=== PATIENT | female | born 1950 | race Caucasian/White ===

== ENCOUNTER → 2024-07-25 10:38 | Outpatient (REF) | payer MEDICARE, SELFPAY | LOC: MRI 10:38 | PROVIDERS: ATTENDING PHYSICIAN Nurse Practitioner; FAMILY PHYSICIAN Internal Medicine | DX: D35.2 Benign neoplasm of pituitary gland (principal) | CPT/HCPCS: 70553; A9575 ==

== ENCOUNTER 2025-09-10 16:34 | Inpatient (IN) | payer MEDICARE, SELFPAY ==
[2025-09-10] VITALS (10 sets, daily range): BP systolic 86–112; BP diastolic 40–61; BMI 45.6; BMI 43.0
[2025-09-10 11:13] LABS: Hematocrit 43.2 % (37.0-47.0); Hemoglobin 14.1 g/dL (12.0-16.0); Mean Corp Hgb Conc. 32.6 g/dL (33.0-37.0); Mean Corpuscular Volume 94.9 fL (81.0-99.0); Nucleated Red Blood Cells % 0 %; Platelet Count 132 10^3/uL (130-400); Red Cell Dist. Width 13.6 % (11.5-14.5)
[2025-09-10 11:28] LABS: ALT (SGPT) 27 U/L (0-35); AST (SGOT) 34 U/L (14-36); Albumin 3.5 g/dl (3.5-5.0); Alkaline Phosphatase 66 U/L (38-126); Blood Urea Nitrogen 21 mg/dl (7-17); Calcium 7.9 mg/dl (8.4-10.2); Carbon Dioxide 32 mmol/L (22-30); Chloride 97 mmol/L (98-107); Glucose 105 mg/dl (70-99); Potassium 3.7 mmol/L (3.5-5.1); Sodium 132 mmol/L (135-145); Total Protein 6.5 g/dl (6.3-8.2); eGFR > 60.00
--- NOTE | 2025-09-10 13:00 | ED.GENMED ---
History of Present Illness
General
Chief Complaint: Fall
Source: patient
Exam Limitations: none
Time Seen by Provider: 09/10/25 12:45
Nursing documentation reviewed up to this point in time: agreed with
History of Present Illness
History of Present Illness:
75-year-old female with a past medical history as noted presents to the ER from [facility]; she presents for evaluation of generalized weakness and minor fall. Patient reports that she has been feeling unwell for the past
3 days today is the fourth day of illness. She says that she has had profuse nausea and vomiting, diarrhea and poor p.o. intake because of the symptoms. She says 'I have not eaten in 4 days.' She says that she had some associated abdominal
cramping. She says she has been feeling weak and fatigued. Denies any cough, URI symptoms, shortness of breath, chest pain. Denies headache. She does not believe she had a fever. She says the GI illness is going around the living facility. She
says that this morning her nausea/vomiting and diarrhea seem to have greatly improved however she was still feeling very weak. She got up to go to the bathroom and when she was getting up off the toilet she says that her legs felt weak and tingly
underneath her and she fell onto her bottom. She says she did not hit her head and did not sustain any major injuries. She denies any headache, neck pain, back pain, extremity pain since the fall. She was too weak to stand up on her own and stiff
and called EMS and ultimately she was brought to the ER for evaluation. She is not on any blood thinners. She says that although she feels generally weak she denies any focal weakness in her legs or numbness in her legs at present.
Past History
Past History
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
ED Past Surgical History: Other (Unknown)
Social History
Tobacco: Non-smoker (Unknown)
Alcohol: None (Unknown)
Drug: None and Other (Unknown)
Living: assisted living
Employment: Not employed
Family History
Family History: Other (reviewed and noncontributory)
Review of Systems
Review of Systems
All Other Systems: ROS reviewed and negative except as documented in HPI and ROS
Constitutional: Reports fatigue; Denies fever or chills
EENT: Denies sore throat or runny nose
Respiratory: Denies cough or trouble breathing
Cardiac: Denies chest pain or palpitations
ABD/GI: Reports abdominal pain, nausea, vomiting, diarrhea and anorexia
: Denies dysuria or flank pain
Musculoskeletal: Denies neck pain or back pain
Neurological: Reports weakness (Generalized) and numbness (Transient numbness/paresthesias in the legs after prolonged sitting on the toilet; resolved now); Denies dizzy or headache
Phy Exam
Physical Exam
Physical Exam:
General: Awake, alert, oriented x3; no acute distress
Head: Normocephalic, atraumatic
Eyes: Conjunctiva normal, sclera anicteric
Throat: Airway intact, somewhat dry mucous membranes
Neck: Trachea midline, supple without meningismus
Lungs: Clear to auscultation bilaterally, no wheezing, rales, rhonchi
Heart: Regular rate and rhythm, no murmurs, gallops, or rubs appreciated
Abd: Soft, non distended, nontender to the palpation
Neuro: Cranial nerves intact, speech fluid, motor and sensory intact and symmetric in all extremities specifically 5/5 motor proximally distally in the legs bilaterally and sensory exam intact in the legs across all dermatomes
Skin: No signs of acute trauma
Extremities: Trace edema in the legs bilaterally, extremities are warm and well-perfused
Scores
Heart Failure Risk
Heart Failure Risk Score: Not Applicable
Heart Score for Chest Pain Patients
STEMI patient?: Not applicable
Withdrawal Assessment of Alcohol
Withdrawal Assessment Completed?: Not applicable
Course
Orders/Labs/Results
Orders:
Orders
09/10/25 10:56
Complete Blood Count/With Diff Urgent
Comprehensive Metabolic Panel Urgent
09/10/25 12:59
0.9% Sodium Chloride 1000 ml [Nss] 1,000 ml IV BOLUS
CR Chest - 2 Views Urgent
Comment:
Reason For Exam: hypoxia, weakness, recent vomiting
09/10/25 13:07
Electrocardiogram (*1) Urgent
Reason for Study: Fatigue / Weakness
EKG- Treatment ONCE
09/10/25 13:33
COVID-19 Antigen Urgent
Source: Nasal Swab
Influenza A+B Rapid Molecular Urgent
BATOOL Source: Nasal Swab
Specimen Description:
Abnormal Lab Results
09/10/25
10:56
MCHC 32.6 L g/dL
(33.0-37.0)
Absolute Lymphs (auto) 0.8 L 10^3/uL
(1.2-3.4)
Absolute Monos (auto) 0.7 H 10^3/uL
(0.1-0.6)
Lymphocytes % 13.4 L %
(20.5-51.1)
Monocytes % 12.0 H %
(1.7-9.3)
Sodium 132 L mmol/L
(135-145)
Chloride 97 L mmol/L
(98-107)
Carbon Dioxide 32 H mmol/L
(22-30)
BUN 21 H mg/dl
(7-17)
Glucose 105 H mg/dl
(70-99)
Calcium 7.9 L mg/dl
(8.4-10.2)
09/10/25 10:56
09/10/25 10:56
Vital Signs
Blood pressure: 98/52
Initial and Last Documented VS:
Initial Vital Signs
Temp Pulse Resp BP Pulse Ox
36.7 C 67 16 102/53 93
09/10/25 10:43 09/10/25 10:43 09/10/25 10:43 09/10/25 10:43 09/10/25 10:43
Last Documented Vital Signs
Temp Pulse Resp BP Pulse Ox
37.2 C 63 16 109/54 99
09/10/25 14:14 09/10/25 14:30 09/10/25 14:30 09/10/25 14:10 09/10/25 14:30
MDM/Problems Addressed
Differential Diagnosis Includes:
Generalized weakness in the setting of recent GI illness:
Nausea/vomiting/diarrhea: Gastroenteritis, colitis, bowel obstruction less likely with symptoms improved/resolved today
Weakness: Dehydration, dysrhythmia, electrolyte abnormality; although she reported weakness in the legs earlier nothing to suggest spinal emergency or CVA by history or exam
MDM/Problems Addressed:
75-year-old female presents for evaluation of generalized weakness and minor fall today in the setting of recent GI illness (nausea/vomiting/diarrhea/crampy abdominal pain). GI symptoms improved today but still very weak and ultimately had minor
fall from toilet with no serious injuries but was unable to stand up. Vitals and exam are as above. Of note she was low normal pulse ox 92% in triage but not truly hypoxic. She denies feeling short of breath or having a cough. Nevertheless can
check chest x-ray to rule out aspiration/pneumonia in the setting of recent vomiting. Check labs including a CBC and a CMP. Check an EKG. Provide some IV fluids. Overall suspect dehydration in the setting of recent GI symptoms which were likely
viral.
Labs reviewed: CBC unremarkable, CMP shows mild hyponatremia and mildly elevated BUN suspect from GI losses/dehydration. Chest x-ray showed no pneumonia or other acute abnormalities. Patient weaned off oxygen, pulse ox acceptable. Blood pressure
still soft 98/54 my most recent check, we will continue fluids, admit for continued monitoring. Discussed with hospitalist.
Chronic conditions affecting care:
Obesity
*Radiology
Radiology exam reviewed: preliminary read by ED provider
*Pulse Oximetry
SaO2: 93
Oxygen Mode of Delivery: Room air
Patient hypoxic: no (92%)
*EKG
Interpreted by ED Provider?: Yes
Comparison EKG: no changes
Heart Rate: 65
Rate: normal
Rhythm: sinus
Beason: left axis deviation
Interval: normal interval
QRS Pattern: normal QRS
Ischemia: no ischemia
*Critical Care Note
Total Time (30-74mins, 75-104mins- exclusive of procedures): Not Applicable
Data Reviewed
Review of Other/Old Records Reveals: Labs and Records
Source: patient, records and ambulance crew
Patient Management
Discussion with other providers: Hospitalist (Discussed with hospitalist)
Escalation/DeEscalation of care consider admission/obs:
Admission indicated
ED Attending Note
-
Portions of this chart may have been created with voice recognition software.� Occasional wrong word or��sound alike� substitutions may have occurred due to the inherent limitations of voice recognition software.
Discharge Plan
Departure
Patient Disposition: Admit
Date of Disposition: 09/10/25
Time of Disposition: 15:10
Admit to doctor: Pj
Presentation/result/management discussed w/ accepting MD/DO: Hospitalist
Discharge Problem:
Dehydration, Weakness
Prescriptions:
No Action
atorvastatin 20 MG tablet
20 mg PO QPM
cranberry 500 MG capsule
500 mg PO DAILY
acetaminophen [Tylenol Extra Strength] 500 mg Tablet
1,000 mg PO Q4HPRN PRN (Reason: mild pain)
acetaminophen [Tylenol Extra Strength] 500 mg Tablet
1,000 mg PO BID
aspirin 81 mg Tablet,Chewable
81 mg PO DAILY
nystatin 100,000 unit/gram Powder
1 applic TOPICAL BIDPRN PRN (Reason: apply to folds and groin)
levothyroxine 88 mcg Tablet
88 mcg PO DAILY
furosemide 20 mg Tablet
10 mg PO MOWEFR
hydrocortisone 10 mg Tablet
10 mg PO DAILY
ketoconazole 2 % Cream
1 applic TOPICAL BID
Deep Sea Nasal 0.65 % Aerosol,[place]
1 spray INTRANASAL Q4HPRN PRN (Reason: dry nares)
Saccharomyces boulardii [Florastor] 250 mg Capsule
250 mg PO BID
solifenacin 10 mg Tablet
10 mg PO DAILY
Referrals:
MEÑO BORDEN MD [Family Provider, Internal Medicine]
Interventions
Interventions:
*General Assessment Last Done: 09/10/25 10:43
*Neglect/Abuse Screening Last Done: 09/10/25 10:43
*ED Influenza Vaccine History Last Done: 09/10/25 10:43
*Risk Screen - Suicide (C-SSRS) Last Done: 09/10/25 10:43
Discharge Date and Time
Print Language: CANADIAN
[2025-09-10 14:10] LABS: COVID-19 Antigen Negative (Negative)
[2025-09-10] MEDS: NSS 1000 IV ×3 (14:17→19:00)
--- NOTE | 2025-09-10 15:42 | HPS.HSE ---
Family Physician
-
Family Physician: MEÑO BORDEN MD
Chief Complaint
-
weakness and fall
History of Present Illness
Ms. 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
getting off of the toilet this morning.
Patient lives at the [facility] and states Flu has been going around. She noticed symptoms on Sunday which including significant fatigue and cough, decreased appetite. She tested positive for Flu. She has had vomiting and diarrhea, abdominal
discomfort. When she got up from the bathroom today she reports that her legs felt weak and she fell onto her bottom. She did not hit her head. One side did not feel weaker than the other.
No chest pain or shortness of breath. No fever. No LE swelling. No MCCORMICK. She was not prescribed Tamiflu.
During my evaluation patient's blood pressure dropped to mid-80's, receiving IVF.
Medical History
Past Medical History
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
Past Surgical History: Reports Other (transphenoid resection pituitary adenoma, bilateral knee replacements, tonsillectomy )
Social History
Tobacco: Non-smoker
Alcohol: None
Family History
Family History: Not pertinent
Allergies / Home Medications
Allergies reflects when Allergies were last updated in sones.
Home Medications with original date entered in sones
Allergy/Medication List:
Allergies
Allergy/AdvReac Type Severity Reaction Status Date / Time
No Known Allergies Allergy Verified 09/10/25 10:47
Home Medications
atorvastatin 20 mg tablet 20 mg PO QPM High cholesterol 10/16/21
cranberry 500 mg capsule 500 mg PO DAILY Supplement 10/16/21
acetaminophen 500 mg tablet (Tylenol Extra Strength) 1,000 mg PO BID Anti-Inflammatory 02/26/23
acetaminophen 500 mg tablet (Tylenol Extra Strength) 1,000 mg PO Q4HPRN PRN mild pain 02/26/23
aspirin 81 mg chewable tablet 81 mg PO DAILY Blood Clot Prevention/Tx 02/26/23
nystatin 100,000 unit/gram topical powder 1 applic topical BIDPRN PRN apply to folds and groin 04/24/23
Saccharomyces boulardii 250 mg capsule (Florastor) 250 mg PO BID Supplement 09/10/25
furosemide 20 mg tablet 10 mg PO MOWEFR Fluid Retention/Swelling 09/10/25
hydrocortisone 10 mg tablet 10 mg PO DAILY Anti-Inflammatory 09/10/25
ketoconazole 2 % topical cream 1 applic topical BID tinea crusis 09/10/25
levothyroxine 88 mcg tablet 88 mcg PO DAILY Thyroid 09/10/25
sodium chloride 0.65 % nasal spray aerosol (Deep Sea Nasal) 1 spray intranasal Q4HPRN PRN dry nares 09/10/25
solifenacin 10 mg tablet 10 mg PO DAILY Urinary Issue 09/10/25
Review of Systems
-
History Source: Patient
A 12 point ROS was completed and negative except as noted: Yes
Physical Exam
Vital Signs
Vital Signs
Temp Pulse Resp BP Pulse Ox
99.0 F 63 16 98/52 99
09/10/25 14:14 09/10/25 14:30 09/10/25 14:30 09/10/25 15:11 09/10/25 14:30
Physical Exam
General: No Apparent Distress and Appears Chronically Ill
HEENT: PERRLA
Respiratory: No Wheezes
Cardiac: S1/S2 and Regular Rhythm
GI: Soft and Non Tender
Musculoskeletal: No Edema
Skin: Warm and Dry; No Rash
Neuro: AO x 3
Psych: Calm
Laboratory Results
-
09/10/25 10:56
09/10/25 10:56
Laboratory Results
Total Bilirubin 1.1 mg/dl (0.2-1.3) 09/10/25 10:56
AST 34 U/L (14-36) 09/10/25 10:56
ALT 27 U/L (0-35) 09/10/25 10:56
Alkaline Phosphatase 66 U/L (38-126) 09/10/25 10:56
Data Reviewed
-
Diagnostic Radiology: Report Reviewed by me
Lab Data: Labs Reviewed by me
Impression/Plan
-
Ms. Olga Cevallos is a 75 yo woman with hx HLD, overactive bladder, BPPV, pituitary adenoma s/p transphenoidal resection 2023, left facial droop from Avilse's palsy, recent diagnosis of flu presents with poor PO intake, weakness and fall when she was
getting off of the toilet this morning.
Triage VS: T 36.7, P 67, RR 16, BP 102/53, SpO2 93%
LABS: WBC 5.9, Hg 14.1, PLT 132, Na 132, K+ 3.7, CO2 32, Cr 0.9, Glucose 105, Ca 7.9, liver enzymes WNL
covid/flu negative
CXR
IMPRESSION:
Linear foci seen in the lower lobes are likely subsegmental atelectasis versus scarring
MAR: 1L IVF
Influenza, although Flu testing negative here, she was positive 3 days ago
Poor PO Intake, Diarrhea
Pituitary Adenoma s/p Transphenoidal Resection 2023 with Primary Adrenal Insufficiency on Hydrocortisone 10mg pO QD
Hypotension 2/2 above
-receiving 1L IVF now, give additional bolus fluids for hypotension if needed
-admit to telemetry
-start Tamiflu
-start Hydrocortisone 25mg q 8 hours for moderate illness (increase dose if clinically worsens)
-hold SENIOR STATISTICAL PROGRAMMER Lasix
HLD
-SENIOR STATISTICAL PROGRAMMER aspirin, Statin
Hypothyroidism - SENIOR STATISTICAL PROGRAMMER Synthroid
Overactive bladder - SENIOR STATISTICAL PROGRAMMER Solifenacin
DVT PPx Lovenox subQ
DNR - patient clear on wishes on admission
76 minutes spent on patient care
[2025-09-10] MEDS: SOLU-CORTEF 25 MG IV ×3 (17:14→23:04)
--- NOTE | 2025-09-10 20:15 | PTCARENOTE ---
Pt arrived to unit from ED via stretcher. Pulled over to bed by staff. A&Ox3. Maintained on 3L O2. Oriented to room. Bed in lowest position with call light in reach. Plan of care ongoing.
[2025-09-10] MEDS: LIPITOR 20 MG PO (20:40)
[2025-09-10] MEDS: FLORASTOR 250 MG PO (20:40)
[2025-09-10] MEDS: TYLENOL 1000 MG PO (20:41)
[2025-09-10] MEDS: LOVENOX 40 MG SC (20:41)
[2025-09-10] MEDS: TAMIFLU 75 MG PO (20:43)
[2025-09-10] MEDS: DESENEX/MITRAZOL/ZEASORB 1 APPLIC TOPICAL (22:09)
[2025-09-10] MEDS: NIZORAL 2% CREAM 1 APPLIC TOPICAL (22:10)
[2025-09-11 03:00] VITALS: BP 122/67
[2025-09-11] MEDS: SYNTHROID 88 MCG PO (05:56)
[2025-09-11 06:00] VITALS: BMI 43.1
[2025-09-11 06:29] LABS: Hematocrit 40.3 % (37.0-47.0); Hemoglobin 12.9 g/dL (12.0-16.0); Mean Corp Hgb Conc. 32.0 g/dL (33.0-37.0); Mean Corpuscular Volume 95.7 fL (81.0-99.0); Nucleated Red Blood Cells % 0 %; Platelet Count 135 10^3/uL (130-400); Red Cell Dist. Width 13.7 % (11.5-14.5)
[2025-09-11 07:11] LABS: Blood Urea Nitrogen 16 mg/dl (7-17); Calcium 7.3 mg/dl (8.4-10.2); Carbon Dioxide 29 mmol/L (22-30); Chloride 101 mmol/L (98-107); Estimated Creatinine Clearance 90 ml/min; Glucose 98 mg/dl (70-99); Magnesium 1.8 mg/dl (1.6-2.3); Potassium 4.0 mmol/L (3.5-5.1); Sodium 135 mmol/L (135-145); eGFR > 60.00
[2025-09-11 07:57] VITALS: BP 101/49
[2025-09-11] MEDS: TYLENOL 1000 MG PO ×2 (08:06→20:48)
[2025-09-11] MEDS: SOLU-CORTEF 25 MG IV ×2 (08:06→17:02)
[2025-09-11] MEDS: DETROL LA 4 MG PO (08:06)
[2025-09-11] MEDS: TAMIFLU 75 MG PO (08:06)
[2025-09-11] MEDS: LOW STRENGTH ASPIRIN 81 MG PO (08:06)
[2025-09-11] MEDS: DESENEX/MITRAZOL/ZEASORB 1 APPLIC TOPICAL ×2 (08:07→20:51)
[2025-09-11] MEDS: FLORASTOR 250 MG PO ×2 (08:08→20:49)
[2025-09-11] MEDS: NIZORAL 2% CREAM 1 APPLIC TOPICAL ×2 (08:08→20:53)
[2025-09-11 09:15] VITALS: BP 107/48; PULSE 58; O2SAT 92
[2025-09-11 11:15] VITALS: BP 104/52
[2025-09-11 11:48] LABS: Hepatitis C Antibody Negative (Negative)
--- NOTE | 2025-09-11 14:13 | W.DCSUMMARY ---
Discharge Summary
Discharge Data
Date of Admission: 09/10/25
Date of Discharge: 09/11/25
-
Pending Results: No
Hospital Course
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
Presented from [facility] for generalized weakness with associated diarrhea and vomiting and electrolyte abnormalities. Received IV fluids. No further episodes of nausea or vomiting. Last episode of diarrhea was previous day. At this
time sitting in bedside chair comfortable tolerated diet. Will plan to discharge back to facility.
Seen and examined on day of discharge which was 09/11/2025. No new complaints. No acute overnight events.
Sitting in bedside chair comfortable
No further diarrheal episodes. No nausea or vomiting. Able to keep breakfast down. No abdominal pain.
NAD
Scleral Anicteric
MMM
No JVD
CTABL
RRR, S1/S2
Soft, NT, ND, BS+
Warm, Dry
AAOx3
Calm
More than 30 minutes spent in discharge including
Final examination of the patient
Summarizing hospital stay
Instructions for continuing care to all relevant caregivers
Preparation of discharge records, prescriptions, and referral forms
Total time spent (in minutes): 33mins
Discharge Plan
-
[facility]position[facility]
Discharge Orders:
Discharge Patient (As Directed); Ordered 09/11/25
Ordered By: Garrison Hebert
Discharge Date and Time
Print Language: LUXEMBOURGER
[2025-09-11 14:29] VITALS: BMI 43.1
[2025-09-11 15:00] VITALS: BP 116/57
--- NOTE | 2025-09-11 15:16 | CM ---
patient seen at bedside
IA completed
Patient resides at [facility]
patient remains on oxygen
home oxygen test ordered
PT eval completed
spoke with Nery at who stated patient PLOF: Independent no assistance needed
cannot accept back today - tt hospitalist
PCP: Isis Powell
Pharmacy: [facility]
PLAN: return to vs. SNF
--- NOTE | 2025-09-11 15:28 | W.PN.HOSP.TC ---
Today's Communication/Plan
-
Assessment / Plan
Assessment / Plan
Generalized weakness likely secondary to acute viral syndrome/gastroenteritis
PT/OT
Gastroenteritis symptoms resolved, tolerating diet well
Acute hypoxic respiratory failure
X-ray consistent with atelectasis
Without evidence of volume overload/pneumonia findings
Will provide incentive spirometer deep breathing exercises
Wean oxygen as tolerated
Home O2 assessment
Hypothyroidism
Continue Synthroid
Overactive bladder
Continue solifenacin
DNR
Anticipated Discharge: 24 - 48 hours
Subjective/Interval History
-
Date of Service: September 11, 2025
Seen and examined. No new complaints. No acute overnight events.
No further nausea or vomiting
No further diarrhea since yesterday
Tolerated breakfast well and was able to keep it down
Feeling better and overall stronger than previous days
Sitting in bedside chair
Objective Data
-
Labs:
Laboratory Results
09/11/25
05:45
WBC 5.1
Hgb 12.9
Hct 40.3
Plt Count 135
Sodium 135
Potassium 4.0
Chloride 101
Carbon Dioxide 29
BUN 16
Creatinine 0.6
Glucose 98
Calcium 7.3 L
Vital Signs:
Vital Signs
Temp Pulse Resp BP Pulse Ox
98.2 F 67 12 104/52 93
09/11/25 11:15 09/11/25 11:15 09/11/25 11:15 09/11/25 11:15 09/11/25 12:35
Physical Exam
-
General: Well Nourished and No Apparent Distress
HEENT: Normocephalic and Atraumatic
Respiratory: Clear to Auscultation
Cardiac: Regular Rhythm and S1/S2
GI: Soft, Nontender, Nondistended and Normal Bowel Sounds
Musculoskeletal: No Clubbing and No Cyanosis
Skin: Warm and Dry
Neuro: Awake and AO x 3
Psych: Calm
[2025-09-11] MEDS: LIPITOR 20 MG PO (17:09)
[2025-09-11] MEDS: LOVENOX 40 MG SC (17:09)
[2025-09-11 19:30] VITALS: BP 120/61
[2025-09-12] VITALS (8 sets, daily range): BP systolic 117–132; BP diastolic 54–75; PULSE 65; O2SAT 93–94
[2025-09-12] MEDS: SOLU-CORTEF 25 MG IV ×2 (00:48→09:04)
[2025-09-12] MEDS: SYNTHROID 88 MCG PO (06:06)
[2025-09-12] MEDS: TYLENOL 1000 MG PO (09:05)
[2025-09-12] MEDS: FLORASTOR 250 MG PO (09:07)
[2025-09-12] MEDS: DETROL LA 4 MG PO (09:07)
[2025-09-12] MEDS: LOW STRENGTH ASPIRIN 81 MG PO (09:07)
[2025-09-12] MEDS: NIZORAL 2% CREAM 1 APPLIC TOPICAL (09:08)
[2025-09-12] MEDS: DESENEX/MITRAZOL/ZEASORB 1 APPLIC TOPICAL (09:13)
--- NOTE | 2025-09-12 12:31 | W.DCSUMMARY ---
Discharge Summary
Discharge Data
Date of Admission: 09/10/25
Date of Discharge: 09/12/25
-
Pending Results: No
Hospital Course
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
Presented from [facility] for generalized weakness with associated diarrhea and vomiting and electrolyte abnormalities. Received IV fluids. No further episodes of nausea or vomiting. Last episode of diarrhea was previous day. At this
time sitting in bedside chair comfortable tolerated diet. Will plan to discharge back to facility.
Seen and examined on day of discharge which was 09/12/2025. No new complaints. No acute overnight events.
Sitting in bedside chair comfortable
No further diarrheal episodes. No nausea or vomiting. Able to keep breakfast down. No abdominal pain.
Ambulatory pulse ox on room air 86% improved to 92% on 2 L. Therefore, meets indication for home O2 use with ambulation due to hypoxemia which is not improved with use of inhalers/nebulizer treatments. At rest 94% on room air.
Will require oxygen with ambulation.
NAD
Scleral Anicteric
MMM
No JVD
CTABL
RRR, S1/S2
Soft, NT, ND, BS+
Warm, Dry
AAOx3
Calm
More than 30 minutes spent in discharge including
Final examination of the patient
Summarizing hospital stay
Instructions for continuing care to all relevant caregivers
Preparation of discharge records, prescriptions, and referral forms
Total time spent (in minutes): 33mins
Discharge Plan
-
Patient Disposition: Assisted/SNF
Discharge Diagnosis/Procedures: generalize weakness
acute viral syndrome
viral gastroenteritis
hld
overactive bladder
bppv
pituitary adenoma
Activity Restrictions/Additional Instructions:
Presented from [facility] facility for generalized weakness with associated diarrhea and vomiting and electrolyte abnormalities. Received IV fluids. No further episodes of nausea or vomiting. Last episode of diarrhea was previous day. At this
time sitting in bedside chair comfortable tolerated diet. Will plan to discharge back to facility.
Referrals:
MEÑO BORDEN MD [Family Provider, Internal Medicine]
Prescriptions:
Continued
atorvastatin 20 MG tablet
20 mg PO QPM
cranberry 500 MG capsule
500 mg PO DAILY
acetaminophen [Tylenol Extra Strength] 500 mg Tablet
1,000 mg PO Q4HPRN PRN (Reason: mild pain)
acetaminophen [Tylenol Extra Strength] 500 mg Tablet
1,000 mg PO BID
aspirin 81 mg Tablet,Chewable
81 mg PO DAILY
nystatin 100,000 unit/gram Powder
1 applic TOPICAL BIDPRN PRN (Reason: apply to folds and groin)
levothyroxine 88 mcg Tablet
88 mcg PO DAILY
furosemide 20 mg Tablet
10 mg PO MOWEFR
hydrocortisone 10 mg Tablet
10 mg PO DAILY
ketoconazole 2 % Cream
1 applic TOPICAL BID
Deep Sea Nasal 0.65 % Aerosol,[place]
1 spray INTRANASAL Q4HPRN PRN (Reason: dry nares)
Saccharomyces boulardii [Florastor] 250 mg Capsule
250 mg PO BID
solifenacin 10 mg Tablet
10 mg PO DAILY
Discharge Orders:
Discharge Patient (As Directed); Ordered 09/11/25
Ordered By: Garrison Hebert
Discharge Date and Time
Print Language: CROATIAN
--- NOTE | 2025-09-12 12:47 | CM ---
spoke with patient - discharge today
PT rec Home Health - [facility] to [facility] (preferred by facility)
notified liaison Benedicto Mahan yesterday
IMM explained & signed. Placed in chart
patient had home oxygen test done yesterday-qualifies oxygen
Harjit from [employer] notified - all information and script given to him as he came on site to drop off a portable tank
spoke with son Ramón & stated to send via ambulance unable to transport (if acute care does not take tank CM will place in CM office & Harjit will picket labor union on Sunday) - Harjit will be delivering oxygen equipment to [facility]
Spoke with Sadie CONCEPCION at [facility] and updated
PLAN: return to [facility] with oxygen ([employer]), [facility] to follow
report [phone], Fax #:[phone]
[facility] fax #: [phone]
transportation forms on chart, 3pm transport -- Sadie CONCEPCION notified
== END 2025-09-12 15:40 | disposition home health service (06) | DRG 391 ==
LOC: 3 WEST ACU 16:34
PROVIDERS: Emergency Medicine; ADMITTING PHYSICIAN Student in an Organized Health Care Education/Training Program; ATTENDING PHYSICIAN Hospitalist; EMERGENCY PHYSICIAN Emergency Medicine; FAMILY PHYSICIAN Internal Medicine
DX: A08.4 Viral intestinal infection, unspecified (principal); J96.01 Acute respiratory failure with hypoxia; E27.1 Primary adrenocortical insufficiency; J98.11 Atelectasis; R53.1 Weakness; E78.00 Pure hypercholesterolemia, unspecified; J10.1 Influenza due to other identified influenza virus with other respiratory manifestations; I95.9 Hypotension, unspecified; E03.9 Hypothyroidism, unspecified; K21.9 Gastro-esophageal reflux disease without esophagitis; E86.0 Dehydration; N32.81 Overactive bladder; H81.10 Benign paroxysmal vertigo, unspecified ear; G51.0 Bell's palsy; W18.11XA Fall from or off toilet without subsequent striking against object, initial encounter; Y93.89 Activity, other specified; Y92.091 Bathroom in other non-institutional residence as the place of occurrence of the external cause; Z66 Do not resuscitate; Z60.2 Problems related to living alone; Z96.653 Presence of artificial knee joint, bilateral; Z79.82 Long term (current) use of aspirin; Z79.890 Hormone replacement therapy; Z87.440 Personal history of urinary (tract) infections; Z11.52 Encounter for screening for COVID-19
CPT/HCPCS: 71046; 80048; 80053; 83735; 85025; 86803; 87502; 87811; 93005; 94761; 96360; 96361; 97163; 97166; 97530; 99285